=== PATIENT | male | born 1975 | race Caucasian/White ===

== ENCOUNTER 2021-10-08 14:13 | Emergency (ER) | payer BC ==
[~2021-10-08] VITALS: Ht 185.4 cm; Wt 81.7 kg
[2021-10-08 14:41] LABS: BASOPHILS ABSOLUTE AUTO 0.04 K/mm3 (0.00-0.23); BASOPHILS PERCENT AUTO 0 % (0-2); EOSINOPHILS ABSOLUTE AUTO 0.13 K/mm3 (0.00-0.68); EOSINOPHILS PERCENT AUTO 1 % (0-6); Hematocrit 41.4 % (37.0-53.0); Hemoglobin 14.4 g/dL (13.5-17.5); IMMATURE GRAN ABSOLUTE AUTO 0.06 K/mm3 (0.00-0.10); IMMATURE GRAN PERCENT AUTO 1 % (0-1); LYMPHOCYTES PERCENT AUTO 30 % (21-46); MONOCYTES PERCENT AUTO 7 % (4-13); Mean Corpuscular HGB 33.8 pg (26.0-34.0); Mean Corpuscular HGB Conc 34.8 g/dL (31.5-36.5); Mean Corpuscular Volume 97 fL (80-100); Mean Platelet Volume 9.7 fL (9.1-12.4); NEUTROPHILS ABSOLUTE AUTO 5.92 K/mm3 (1.96-9.15); NEUTROPHILS PERCENT AUTO 61 % (41-73); Platelet Count 209 K/mm3 (150-400); RDW Coefficient Variation 12.3 % (11.7-14.2); Red Blood Cell Count 4.26 M/mm3 (4.30-5.90); White Blood Cell Count 9.75 K/mm3 (4.00-11.30)
[2021-10-08 14:55] LABS: Albumin, Blood 3.8 g/dL (3.4-5.0); Albumin/Globulin Ratio 1.2 (0.8-1.8); Bilirubin, Total 0.5 mg/dL (0.1-1.0); Bun/Creatinine Ratio 11.5 (12.0-20.0); Calcium, Blood 8.9 mg/dL (8.5-10.1); Creatinine, Blood 0.52 mg/dL (0.60-1.20); Globulin, Blood 3.3 g/dL (2.2-4.0); Total Protein, Blood 7.1 g/dL (6.4-8.2)
== END 2021-10-08 18:06 | disposition short-term general hospital (02) ==
LOC: ER 14:13
PROVIDERS: Emergency Medicine
DX: S22.43XA Multiple fractures of ribs, bilateral, initial encounter for closed fracture (principal); S02.652A Fracture of angle of left mandible, initial encounter for closed fracture; S02.641A Fracture of ramus of right mandible, initial encounter for closed fracture; S02.19XA Other fracture of base of skull, initial encounter for closed fracture; S73.005A Unspecified dislocation of left hip, initial encounter; S01.112A Laceration without foreign body of left eyelid and periocular area, initial encounter; S10.91XA Abrasion of unspecified part of neck, initial encounter; S20.312A Abrasion of left front wall of thorax, initial encounter; V47.6XXA Car passenger injured in collision with fixed or stationary object in traffic accident, initial encounter; F17.220 Nicotine dependence, chewing tobacco, uncomplicated
CPT/HCPCS: 70450; 70486; 71045; 71260; 72125; 72170; 74177; 80053; 83690; 85025; 93005; 93010; J2270; J2405; J2704; Q9967

== ENCOUNTER 2021-10-20 10:16 | Emergency (ER) | payer OTHER ==
[~2021-10-20] VITALS: Ht 185.4 cm; Wt 77.1 kg
[2021-10-20] MEDS ORDERED: Percocet 5-3251 EACH PO (11:14)
== END 2021-10-20 11:41 | disposition home or self-care (01) ==
LOC: ER 10:16
DX: Z76.0 Encounter for issue of repeat prescription (principal); R68.84 Jaw pain; F17.220 Nicotine dependence, chewing tobacco, uncomplicated
CPT/HCPCS: 99281

== ENCOUNTER 2021-12-02 11:37 | Emergency (ER) | payer OTHER ==
[~2021-12-02] VITALS: Ht 185.4 cm; Wt 77.1 kg
[~2021-12-02 11:37] MED LIST: Percocet 5-3251 EACH PO
== END 2021-12-02 14:23 | disposition home or self-care (01) ==
LOC: ER 11:37
DX: Z48.02 Encounter for removal of sutures (principal)
CPT/HCPCS: 99281

== ENCOUNTER 2022-05-16 10:11 | Day surgery (SDC) | payer OTHER ==
[~2022-05-16] VITALS: Ht 185.4 cm; Wt 85.7 kg
[~2022-05-16 10:11] MED LIST changes: +Aspir 8181 MG PO
--- NOTE | 2022-05-16 11:00 | NUR ---
PATIENT READY FOR PROCEDURE AND ALREADY SPOKE WITH DR. NORRIS PRE-OPERATIVELY. WAITING FOR PROCEDURE START TIME. CALL LIGHT IN REACH, GIRLRIEND AT THE BEDSIDE.
--- NOTE | 2022-05-16 12:41 | NUR ---
PATIENT RETURNED FROM THE [facility] VIA RECLINER. RIGHT RADIAL TR BAND IN PLACE WITH 11 ML OF AIR IN THE BAND. PLACED ON THE MONITOR AND CALL LIGHT IN REACH. LUNCH TRAY SERVED AND FEEDING SELF.NO BLEEDIN AND NO HEMATOMA NOTED TO THE RIGHT RADIAL.
--- NOTE | 2022-05-16 14:36 | NUR ---
1335 BEGAN TAKING AIR FROM THE TR BAND.
--- NOTE | 2022-05-16 14:37 | NUR ---
1400 TR BAND FLAT SINCE 134 AND PATIENT UP TO THE RESTROOM. PIV REMOVED, CATH TIP INTACT. PRESSURE DRESSING APPLIED. PATIENT REVEIWED DISCHARGE INSTRUCTIONS AND ALL QUESTIONS ANSWERED. PATIENT IS ALREADY SCHEDULED IN [facility] FOR TAVR AND PRE-OP APPOINTMENTS,
--- NOTE | 2022-05-16 14:39 | NUR ---
1425 PATIENT OFF THE MONITOR AND ASSISTED BY PERI WITH DRESSING. TR BAND REMOVED AND SITE CLEANED. CLOTH JASON PLACED. NO HEMATOMA AND NO BLEEDING NOTED. WHITE BOAARD REPLACED TO THE RIGHT WRIST AND NO FURTHER QUESTIONS NOTED FRM THE PATIENT OR FAMILY.
--- NOTE | 2022-05-16 14:40 | NUR ---
1443 PATIENT PATIENT DISCHARGED HOME AMBULATORY WITH GIRLFRIEND AND INSTRUCTIONS IN HAND.
== END 2022-05-16 14:49 | disposition home or self-care (01) ==
LOC: MHTC 10:11
DX: I35.0 Nonrheumatic aortic (valve) stenosis (principal)
CPT/HCPCS: 76937; 93454; 99152; 99153; A9270; C1769; C1887; C1894; J1644; J2250; J3010; J7030; J7050; Q9967

== ENCOUNTER 2023-06-26 14:44 | Emergency (ER) | payer OTHER ==
[~2023-06-26] VITALS: Ht 185.4 cm; Wt 85.3 kg
[2023-06-26 15:19] VITALS: BP 181/111
== END 2023-06-26 19:27 | disposition home or self-care (01) ==
LOC: ER 14:44
DX: S92.401B Displaced unspecified fracture of right great toe, initial encounter for open fracture (principal); S92.501B Displaced unspecified fracture of right lesser toe(s), initial encounter for open fracture; F17.220 Nicotine dependence, chewing tobacco, uncomplicated; W31.89XA Contact with other specified machinery, initial encounter; Z79.82 Long term (current) use of aspirin